=== PATIENT | female | born 1965 | race African-American/Black ===

== ENCOUNTER 2023-01-22 09:11 | Inpatient (IN) | payer MEDICAID ==
[~2023-01-22] VITALS: Ht 160 cm; Wt 41.3 kg
[2023-01-22] MEDS ORDERED: IPRATROPIUM 0.02% 0.5 MG/2.5 ML NEBU INH ONE (09:15)
[2023-01-22] MEDS ORDERED: ALBUTEROL 0.083% 2.5 MG/3 ML NEBU INH ONE (09:15)
[2023-01-22] MEDS ORDERED: predniSONE 20 MG TAB PO ONE (09:15)
[2023-01-22] MEDS ORDERED: ALBUTEROL SULFATE/IPRATROPIU 3 ML SOL IH ONE (09:16)
[2023-01-22 09:17] VITALS: BP 108/78
--- NOTE | 2023-01-22 09:47 | NUR ---
Pt bib bls for decreased o2 sat this morning. Pt is regularly on 02 at 3lpm but still dropped to 70% this morning. Pt was sating 92 on arrival after albuterol tx. Pt off o2 on arrival. MD at bedside. Pt a/o x 4, vss, no ss of acute distress (other then prior o2 level), speech clear, on monitor. IV started. Lab eduardo blood at bedside. RT administered 1 tx.
[2023-01-22 10:02] LABS: BASOPHILS # (AUTO) 0.1 K/uL (0.00-0.22); BASOPHILS % (AUTO) 0.7 % (0.0-2.0); EOSINOPHILS # (AUTO) 0.2 K/uL (0-0.4); EOSINOPHILS % (AUTO) 2.3 % (0.0-4.0); HEMATOCRIT 41.4 % (36-48); HEMOGLOBIN 12.9 g/dL (12.0-16.0); LYMPHOCYTES # (AUTO) 1.4 K/uL (2.5-16.5); LYMPHOCYTES % (AUTO) 18.6 % (20.5-51.1); MEAN CORPUSCULAR HEMOGLOBIN 26 pg (27-31); MEAN CORPUSCULAR HGB CONC 31 g/dL (33-37); MEAN CORPUSCULAR VOLUME 83.7 fL (80-94); MONOCYTES # (AUTO) 0.6 K/uL (0.8-1.0); MONOCYTES % (AUTO) 7.9 % (1.7-9.3); NEUTROPHILS # (AUTO) 5.2 K/uL (1.8-7.7); NEUTROPHILS % (AUTO) 70.5 % (42.2-75.2); PLATELET COUNT (AUTO) 182 K/uL (140-450); RED BLOOD CELL COUNT(AUTO) 4.95 MIL/uL (4.20-5.40); RED CELL DISTRIBUTION WIDTH 19.6 % (11.6-13.7); WHITE BLOOD COUNT (AUTO) 7.4 K/uL (4.8-10.8)
[2023-01-22] MEDS ORDERED: MAG SULF 2000 MG/WATER PREMIX 50 ML IV ONE (10:25)
[2023-01-22 10:31] LABS: ALBUMIN 3.2 g/dL (3.4-5.0); ASPARTATE AMINOTRANSFERASE 164 U/L (15-37); CARBON DIOXIDE 36.3 mmol/L (21-32); CHLORIDE 104 mmol/L (98-107); CREATININE 0.9 mg/dL (0.6-1.3); GFR ARICAN-AMERICAN 83 mL/min (>90); GLUCOSE 102 mg/dL (74-106); POTASSIUM 4.3 mmol/L (3.5-5.1); SODIUM SERUM 143 mmol/L (136-145); TOTAL BILIRUBIN 0.7 mg/dL (0.0-1.0); UREA NITROGEN, BLOOD 23 mg/dL (7-18)
[2023-01-22] MEDS ORDERED: cefTRIAXone 1,000 MG in DEXT 5% MINI-BAG PLUS 50 ML IV ONE (10:35)
[2023-01-22] MEDS ORDERED: AZITHROMYCIN 500 MG in DEXTROSE 5% 250 ML IV ONE (10:40)
[2023-01-22] MEDS: NACL 0.9% 2,000 ML IV SCH ×2 (10:41→17:28)
--- NOTE | 2023-01-22 11:08 | NUR ---
Spoke with lab, who will draw cultures. CT aware of new order. Pt has no complaints at this time. Pt is a/o x 4, vss, no ss of acute distress, breathing equal and unlabored, speech clear. On monitor.
[2023-01-22] MEDS ORDERED: cefTRIAXone 1,000 MG VIAL ONE (11:26)
[2023-01-22] MEDS ORDERED: AZITHROMYCIN 500 MG INJ VIAL IV ONE (11:27)
--- NOTE | 2023-01-22 11:51 | NUR ---
Pt back from ct with contrast infiltration at R arm. has seen and assessed. Pt denies pain. Pt resting in bed without complaints. New IV 18g started in L arm.
--- NOTE | 2023-01-22 13:30 | NUR ---
Pt resting in bed. No complaints at this time. okayed food, pt given meal tray. Vss, no ss of acute distress, breathing equal and unlabored, speech clear.
--- NOTE | 2023-01-22 15:30 | NUR ---
Pt ambulated to and from bathroom without incident. Pt is a/o x 4, vss, no sss of acute distress, placed back on monitor. O2 sat in high 90s. Pt given milk as requested.
[2023-01-22] MEDS ORDERED: guaiFENesin DM 200/20 MG-10 ML 10 ML UDC PO PRN (16:45)
[2023-01-22] MEDS ORDERED: ZOLPIDEM 5 MG TAB PO PRN (16:45)
[2023-01-22] MEDS: NACL 0.9% 1,000 ML IV SCH (16:45)
[2023-01-22] MEDS ORDERED: DOCUSATE SODIUM 100 MG GELCAP PO PRN (16:45)
[2023-01-22] MEDS ORDERED: ACETAMINOPHEN 325 MG TAB PO PRN (16:45)
[2023-01-22] MEDS ORDERED: POTASSIUM CHLORIDE 10 MEQ TABER PO PRN (16:45)
--- NOTE | 2023-01-22 17:00 | NUR ---
Receiving RN just had a code blue. Requested to call back for report.
[2023-01-22 17:30] LABS: PROTHROMBIN TIME 12.2 secs (10.8-13.4)
[2023-01-22 17:44] LABS: CHOL/HDL RATIO 3.9 (1-4.5); FREE T4 (FREE THYROXINE) 1.26 ng/dL (0.76-1.46); MAGNESIUM 1.9 mg/dL (1.8-2.4); PHOSPHORUS 3.9 mg/dL (2.5-4.9); THYROID STIMULATING HORMONE 1.9 uIU/mL (0.34-3.74)
--- NOTE | 2023-01-22 18:45 | NUR ---
Report given to AMRITA Vuong at [facility]. Pt in stable condition. Transported on monitor without incident. Pt a/o x 4, vss, no ss of acute distress, breathing equal and unlabored, speech clear.
--- NOTE | 2023-01-22 18:50 | NUR ---
admitted patient from ED. on O2 @ 2lpm via NC. tolerating well. MRSA swab obtained and sent to lab. educated on fall precaution , verbalized understanding. will endorse to PM shift.
[2023-01-22] MEDS: ALBUTEROL SULFATE/IPRATROPIU 3 ML SOL IH SCH (19:00)
--- NOTE | 2023-01-22 19:07 | NUR ---
RECEIVED PATIENT IN BED ALERT AND ORIENTED WITH BREATHING TREATMENT IN PLACE BY RT. PATIENT REQUESTED MEDICATION AFTER TREATMENT AND NURSING WILL GIVE SANDWICH BASED ON DIET. PATIENT STATED THAT HER IV WAS BOTHERING HER, NURSING EXPRESSED WILL CHANGE SOON POSSIBLE. PATIENT UNDERSTOOD AND AGREED. PATIENT IS ABLE TO VERBALIZE NEEDS. BEDSIDE COMMODE WAS PLACED AT BEDSIDE FOR BATHROOM USAGE WITH ASSISTANCE. SIDE RAILS UP X 2 FOR SAFETY AND ADJUSTMENT. CALL LIGHT WITHIN REACH FOR ALL ASSISTANCE. [email or web address]
[2023-01-22 20:00] VITALS: BP 94/60
--- NOTE | 2023-01-22 20:00 | NUR ---
Patient's Plan of Care was discussed and reviewed with MARC: REBA
[2023-01-22] MEDS: ONDANSETRON 4 MG/2 ML VIAL IM/IVP PRN (23:41)
[2023-01-23] VITALS: BP 121/73
[2023-01-23 00:12] LABS: APPEARANCE,URINE CLEAR (CLEAR); BILIRUBIN,URINE NEGATIVE (NEGATIVE); BLOOD, URINE NEGATIVE (NEGATIVE); COLOR,URINE YELLOW (YELLOW); LEUKOCYTE ESTERASE ,URINE NEGATIVE (NEGATIVE); NITRITE, URINE NEGATIVE (NEGATIVE); UGLUCOSE NEGATIVE (NEGATIVE)
[2023-01-23 00:27] LABS: BARBITURATE, URINE NEGATIVE ng/ml (NEG <=200); BENZODIAZEPINE, URINE NEGATIVE ng/mL (NEG <=200); CANNABINOID, URINE NEGATIVE ng/mL (NEG <=50); COCAINE, URINE NEGATIVE ng/mL (NEG <=300); OPIATE, URINE NEGATIVE ng/mL (NEG <=2000); PHENCYCLIDINE SCREEN,URINE NEGATIVE ng/mL (NEG <=25)
--- NOTE | 2023-01-23 00:30 | NUR ---
PATIENT WAS GIVEN ZOFRAN AND NO NOTED SIDE EFFECTS. PATIENT WAS ABLE TO SLEEP WITHOUT VOMITING. NEW IV LINE STARTED ON LEFT LATERAL FOREARM KEPT CLEAN AND DRY. ALL NEEDS WERE MET AT THIS TIME. CALL LIGHT WITHIN REACH. PATIENT IS AWARE SPUTUM IS NEEDED FOR THE LAB. URINE WAS COLLECTED AND SENT TO LAB. [email or web address]
[2023-01-23] MEDS: HYDROcodone/APAP 7.5/325 MG 1 TAB PO PRN ×2 (02:33→11:12)
--- NOTE | 2023-01-23 03:14 | NUR ---
PATIENT IN BED ASLEEP. NO NOTED INCIDENT AT THIS TIME. [email or web address]
[2023-01-23 04:00] VITALS: BP 120/42
[2023-01-23] MEDS: ONDANSETRON 4 MG/2 ML VIAL IM/IVP PRN (04:20)
--- NOTE | 2023-01-23 05:27 | NUR ---
PATIENT IN BED ASLEEP. REMAINS CLEAN AND DRY. NO S/S OF PAIN/DISCOMFORT. NO NOTED RESPIRATORY DISTRESS AT THIS TIME. NO NOTED INCIDENT AT THIS TIME. CALL LIGHT WITHIN REACH. SIDE RAILS UP X 2. [email or web address]
[2023-01-23 06:53] LABS: BASOPHILS % (AUTO) 0.1 % (0.0-2.0); EOSINOPHILS % (AUTO) 0.1 % (0.0-4.0); HEMATOCRIT 38.3 % (36-48); HEMOGLOBIN 11.7 g/dL (12.0-16.0); LYMPHOCYTES # (AUTO) 1.3 K/uL (2.5-16.5); LYMPHOCYTES % (AUTO) 17.5 % (20.5-51.1); MEAN CORPUSCULAR HEMOGLOBIN 26 pg (27-31); MEAN CORPUSCULAR HGB CONC 31 g/dL (33-37); MEAN CORPUSCULAR VOLUME 84.9 fL (80-94); MONOCYTES # (AUTO) 0.6 K/uL (0.8-1.0); MONOCYTES % (AUTO) 7.5 % (1.7-9.3); NEUTROPHILS # (AUTO) 5.7 K/uL (1.8-7.7); NEUTROPHILS % (AUTO) 74.8 % (42.2-75.2); PLATELET COUNT (AUTO) 169 K/uL (140-450); RED BLOOD CELL COUNT(AUTO) 4.51 MIL/uL (4.20-5.40); RED CELL DISTRIBUTION WIDTH 19.1 % (11.6-13.7); WHITE BLOOD COUNT (AUTO) 7.6 K/uL (4.8-10.8)
[2023-01-23 07:08] LABS: T4 (THYROXINE) 6.1 ug/dL (4.5-12.0)
--- NOTE | 2023-01-23 07:30 | NUR ---
ENDORSED TO ADZE RN THAT PATIENT WAS STABLE, CONTINUE WITH CARE. [email or web address]
[2023-01-23] MEDS: ALBUTEROL SULFATE/IPRATROPIU 3 ML SOL IH SCH ×3 (07:35→19:27)
[2023-01-23 08:00] VITALS: BP 102/68
--- NOTE | 2023-01-23 08:00 | NUR ---
RECEIVED PATIENT RESTING COMFORTABLY IN BED, NOT IN ANY FORM OF DISTRESS, ON O2 @ 3LPM VIA NC TOLERATING WELL, SHIFT ASSESSMENT DONE AND DOCUMENTED, PLAN OF CARE DISCUSSED, EDUCATED ON FALL PRECAUTION VERBALIZED UNDERSTANDING, WILL CONTINUE TO MONITOR.
[2023-01-23] MEDS: PANTOPRAZOLE 40 MG TABEC PO SCH (08:12)
[2023-01-23] MEDS: AZITHROMYCIN 250 MG TAB PO SCH (08:13)
[2023-01-23] MEDS: predniSONE 20 MG TAB PO SCH (08:13)
--- NOTE | 2023-01-23 08:48 | NUR ---
PATIENT HAS BEEN SCREENED AND CATEGORIZED HIGH NUTRITION RISK. PATIENT WILL BE SEEN WITHIN 1-2 DAYS OF ADMISSION. 01/23/23-01/24/[address]
[2023-01-23 09:12] LABS: ANION GAP 9.9 (8-16); CARBON DIOXIDE 30.9 mmol/L (21-32); CREATININE 0.6 mg/dL (0.6-1.3); POTASSIUM 4.8 mmol/L (3.5-5.1)
--- NOTE | 2023-01-23 09:13 | NUR ---
DC [age] YRS OLD FEMALE PATIENT WAS ADMITTED FROM HOME WITH A DX OF HYPOXIA, PNA, COPD EXACERBATION. PATIENT HAS A HX OF HTN AND COPD. CXR SHOWED RT BASILAR INFILTRATES/ATELECTASIS. CT CHEST NO PE. RAPID COVID TEST NEGATIVE. ON O2 3L/NC SATING 98%. ADMINISTERED IV ABX ROCEPHIN AND CONTINUED HOME MEDS. CONSULTED WITH PULMO. DC PLAN TO GO HOME WHEN STABLE. CM TO FOLLOW
[2023-01-23] MEDS: NACL 0.9% 1,000 ML IV SCH (09:25)
[2023-01-23 12:00] VITALS: BP 104/67
[2023-01-23] MEDS ORDERED: PANTOPRAZOLE 40 MG TABEC PO STA (12:59)
[2023-01-23] MEDS ORDERED: CALCIUM CARBONATE 500 MG TAB.CHEW PO PRN (13:00)
[2023-01-23] MEDS: LACTATED RINGERS 1,000 ML IV SCH ×2 (13:10→23:10)
[2023-01-23] MEDS ORDERED: HYDROmorphone 1 MG/ML AMP IVP PRN ×2 (13:10)
--- NOTE | 2023-01-23 14:28 | NUR ---
patient transported to CT scan
--- NOTE | 2023-01-23 14:29 | NUR ---
01/23/23 RD INITIAL ASSESSMENT COMPLETED PLEASE REFER TO NUTRITION ASSESSMENT UNDER CARE ACTIVITY FOR ESTIMATED NUTRITIONAL NEEDS. 1. CONTINUE NPO DIET TOLERATED AND ONCE MEDICALLY APPROPRIATE ADVANCE TO CARDIAC DIET. 2. RD RECOMMENDS ENSURE TIP TO HELP WITH CALORIE AND PROTEIN INTAKE DUE TO LOW WEIGHT AND BMI ONCE MEDICALLY APPROPRIATE. 3. RD TO FOLLOW-UP 3-5 DAYS, MODERATE RISK JAVAD QUINTANILLA, RD
[2023-01-23 14:32] LABS: CHOL/HDL RATIO 3.4 (1-4.5)
[2023-01-23 16:00] VITALS: BP 102/68
--- NOTE | 2023-01-23 19:00 | NUR ---
lab called sputum specimen needs to be at least 1ml. patient unable to produce sputum at this time.
--- NOTE | 2023-01-23 19:20 | NUR ---
RECEIVED PATIENT FROM AM NURSE FOR CONTINUITY OF CARE. PT IS STABLE
[2023-01-23] MEDS: BUDESONIDE 0.25 MG/2 ML NEBU INH SCH (19:27)
[2023-01-23 20:00] VITALS: BP 105/61
--- NOTE | 2023-01-23 23:00 | NUR ---
DR WESTBROOK CALLED ASKING FOR LAB RESULTS,US ABDOMEN,CT OF ABDOMEN/PELVIS. ALL INFORMATION PROVIDED TO MD. NO ORDERS GIVEN
[2023-01-24] VITALS: BP 101/58
[2023-01-24] MEDS: ALBUTEROL SULFATE/IPRATROPIU 3 ML SOL IH PRN ×3 (02:23→17:18)
[2023-01-24 04:00] VITALS: BP 108/55
[2023-01-24] MEDS: ALBUTEROL SULFATE/IPRATROPIU 3 ML SOL IH SCH ×3 (07:00→19:33)
--- NOTE | 2023-01-24 07:07 | NUR ---
RECEIVED PT ON 3L NASAL CANNULA. WILL RETURN SHORTLY FOR BREATHING TREATMENT, PT SLEEPING. EQUAL CHEST RISE, NO DISTRESS NOTED. WILL CONTINUE TO MONITOR.
--- NOTE | 2023-01-24 07:10 | NUR ---
RECEIVED REPORT FROM COREMAKING MACHINE OPERATOR NURSE FOR CONTINUITY OF CARE. PT STABLE AT THIS TIME.
[2023-01-24] MEDS: BUDESONIDE 0.25 MG/2 ML NEBU INH SCH ×2 (07:12→19:33)
[2023-01-24 07:16] LABS: BASOPHILS % (AUTO) 0.2 % (0.0-2.0); EOSINOPHILS % (AUTO) 0.2 % (0.0-4.0); HEMATOCRIT 36.8 % (36-48); HEMOGLOBIN 11.3 g/dL (12.0-16.0); LYMPHOCYTES # (AUTO) 1.3 K/uL (2.5-16.5); LYMPHOCYTES % (AUTO) 15.3 % (20.5-51.1); MEAN CORPUSCULAR HEMOGLOBIN 26 pg (27-31); MEAN CORPUSCULAR HGB CONC 31 g/dL (33-37); MEAN CORPUSCULAR VOLUME 84.7 fL (80-94); MONOCYTES # (AUTO) 0.6 K/uL (0.8-1.0); MONOCYTES % (AUTO) 7.3 % (1.7-9.3); NEUTROPHILS # (AUTO) 6.7 K/uL (1.8-7.7); PLATELET COUNT (AUTO) 161 K/uL (140-450); RED BLOOD CELL COUNT(AUTO) 4.34 MIL/uL (4.20-5.40); RED CELL DISTRIBUTION WIDTH 18.7 % (11.6-13.7); WHITE BLOOD COUNT (AUTO) 8.7 K/uL (4.8-10.8)
--- NOTE | 2023-01-24 07:20 | NUR ---
ENDORSED PATIENT TO AM NURSE IN STABLE CONDITION FOR CONTINUITY OF CARE
[2023-01-24 07:22] LABS: ANION GAP 7.5 (8-16); CARBON DIOXIDE 35.1 mmol/L (21-32); CREATININE 0.6 mg/dL (0.6-1.3); POTASSIUM 4.6 mmol/L (3.5-5.1)
[2023-01-24 08:00] VITALS: BP 102/58
[2023-01-24 08:08] LABS: HEPATITIS A ANTIBODY IGM Negative (Negative); HEPATITIS B CORE AB TOTAL Negative (Negative); HEPATITIS B SURFACE ANTIBODY Non Reactive (.); HEPATITIS B SURFACE ANTIGEN Negative (Negative)
[2023-01-24] MEDS: LACTATED RINGERS 1,000 ML IV SCH ×2 (09:10→20:05)
--- NOTE | 2023-01-24 09:15 | NUR ---
PLACED PT ON 4L BUBBLE HUMIDIFIER DUE TO LOW SATURATION, 88% AND PT COMFORT. NO DISTRESS. WILL CONTINUE TO MONITOR.
[2023-01-24] MEDS: predniSONE 20 MG TAB PO SCH (09:48)
[2023-01-24] MEDS: PANTOPRAZOLE 40 MG TABEC PO SCH (09:48)
[2023-01-24] MEDS: AZITHROMYCIN 250 MG TAB PO SCH (09:48)
[2023-01-24 16:00] VITALS: BP 91/60
--- NOTE | 2023-01-24 17:25 | NUR ---
@1715 RN CALLED FOR PT FEELING SOB. ARRIVED AT BEDSIDE PT SATURATION WAS AT 89% ON 3L BUBBLE NC. PRN TREATMENT WAS GIVEN TO PT. PT STATES THAT SHE IS FEELING BETTER. AT THIS TIME VITAL SIGNS ARE 65HR RR20 SATURATION 99% ON 3L BUBBLE NC. NO DISTRESS NOTED. WILL CONTINUE TO MONITOR
--- NOTE | 2023-01-24 19:20 | NUR ---
ENDORSED PT TO ROVING FRAME TENDER NURSE FOR CONTINUITY OF CARE. PT STABLE AT THIS TIME.
--- NOTE | 2023-01-24 19:21 | NUR ---
RECEIVED PT FROM MORNING SHIFT NURSE. PT IS AOX4, AMBULATORY, ABLE TO VERBALIZE NEEDS AND ABLE TO FOLLOW COMMANDS. PT IS ON 3L NC AND ON CARDIAC DIET. PT HAS IV ON LEFT FOREARM AC GAUGE 22 RUNNING WITH LR AT 100ML/HR. PT HAS BEDSIDE COMMODE AND PT SKIN IS INTACT. NO COMPLAIN OF PAIN AT THIS TIME. NO S/S OF RESPIRATORY DISTRESS NOTED. ALL SAFETY MEASURES IMPLEMENTED. BED IN LOW POSITION, BED WHEELS ON LOCK AND CALL LIGHT WITHIN REACH.
--- NOTE | 2023-01-24 22:00 | NUR ---
PT WAS GIVEN 2 JELLO PER PT REQUEST. NO COMPLAIN OF PAIN. NO S/S OF RESPIRATORY DISTRESS NOTED. ALL SAFETY MEASURES IMPLEMENTED. BED IN LOW POSITION. BED WHEELS ON LOCK AND CALL LIGHT WITHIN REACH
--- NOTE | 2023-01-25 | NUR ---
PT IS ON SLEEP. CHEST RISE AND FALL SYMMETRICALLY NOTED. RESPIRATION IS EVEN AND UNLABORED. ALL SAFETY MEASURES IMPLEMENTED. BED IN LOW POSITION. BED WHEELS ON LOCK AND CALL LIGHT WITHIN REACH
--- NOTE | 2023-01-25 02:00 | NUR ---
CHECKED THE PT, STILL ON SLEEP. CHEST RISE AND FALL SYMMETRICALLY NOTED. RESPIRATION IS EVEN AND UNLABORED. ALL SAFETY MEASURES IMPLEMENTED. BED IN LOW POSITION. BED WHEELS ON LOCK AND CALL LIGHT WITHIN REACH
[2023-01-25 04:00] VITALS: BP 93/50
--- NOTE | 2023-01-25 04:00 | NUR ---
HELPED PT TO DO HER MORNING CARE. NO COMPLAIN OF PAIN AT THIS TIME. PT IS ON SLEEP. NO S/S OF RESPIRATORY DISTRESS NOTED. ALL SAFETY MEASURES IMPLEMENTED. BED IN LOW POSITION. BED WHEELS ON LOCK AND CALL LIGHT WITHIN REACH
[2023-01-25] MEDS: LACTATED RINGERS 1,000 ML IV SCH ×2 (05:33→15:18)
[2023-01-25 07:00] LABS: BASOPHILS % (AUTO) 0.3 % (0.0-2.0); EOSINOPHILS % (AUTO) 0.1 % (0.0-4.0); HEMATOCRIT 37.4 % (36-48); HEMOGLOBIN 11.7 g/dL (12.0-16.0); LYMPHOCYTES # (AUTO) 1.2 K/uL (2.5-16.5); MEAN CORPUSCULAR HEMOGLOBIN 26 pg (27-31); MEAN CORPUSCULAR HGB CONC 31 g/dL (33-37); MEAN CORPUSCULAR VOLUME 83.2 fL (80-94); MONOCYTES # (AUTO) 0.5 K/uL (0.8-1.0); MONOCYTES % (AUTO) 5.3 % (1.7-9.3); NEUTROPHILS # (AUTO) 7.3 K/uL (1.8-7.7); NEUTROPHILS % (AUTO) 81.3 % (42.2-75.2); PLATELET COUNT (AUTO) 190 K/uL (140-450); RED CELL DISTRIBUTION WIDTH 18.7 % (11.6-13.7); WHITE BLOOD COUNT (AUTO) 8.9 K/uL (4.8-10.8)
[2023-01-25 07:18] LABS: CARBON DIOXIDE 37.7 mmol/L (21-32); CREATININE 0.5 mg/dL (0.6-1.3); POTASSIUM 4.7 mmol/L (3.5-5.1)
--- NOTE | 2023-01-25 07:20 | NUR ---
PT IS STABLE. ENDORSED PT TO MORNING SHIFT NURSE FOR CONTINUITY OF CARE.
[2023-01-25] MEDS: ALBUTEROL SULFATE/IPRATROPIU 3 ML SOL IH SCH ×3 (07:27→19:08)
[2023-01-25] MEDS: BUDESONIDE 0.25 MG/2 ML NEBU INH SCH ×2 (07:27→19:08)
--- NOTE | 2023-01-25 07:27 | NUR ---
RECEIVED ON SUPPLEMENTAL OXYGEN AT 3 LPM VIA NC; REVIEWED WITH PATIENT PMHX:COPD, ALVEOLAR AIR EXCHANGE PROCESS, CURRENT OXYGEN USAGE AT 3 LPM, HOME OXYGEN USE AT 2 LPM; NASAL DRYNESS FROM SUPPLEMENTAL OXYGEN; CONCURRENCE WITH PATIENT TO DECREASE SUPPLEMENTAL USAGE TO 2 LPM; ADDED HUMIDIFIER; GENA/ROXANA RN NOTIFIED OF OXYGEN TITRATION
[2023-01-25 08:00] VITALS: BP 102/61
[2023-01-25] MEDS: PANTOPRAZOLE 40 MG TABEC PO SCH (09:13)
[2023-01-25] MEDS: AZITHROMYCIN 250 MG TAB PO SCH (09:14)
[2023-01-25] MEDS: predniSONE 20 MG TAB PO SCH (09:14)
[2023-01-25] MEDS: ALBUTEROL SULFATE/IPRATROPIU 3 ML SOL IH PRN ×2 (12:45→16:21)
--- NOTE | 2023-01-25 12:46 | NUR ---
PATIENT STATES THAT WHEN WAKING UP FROM SLEEP STATUS "I'M ALWAYS SHORT OF BREATH"
--- NOTE | 2023-01-25 13:43 | NUR ---
PATIENT ASLEEP AT THIS TIME; NO DISTRESS NOTED; DIELECTRIC TESTER TO INITIATE INCENTIVE SPIROMETRY THERAPY AT A LATER TIME; INCENTIVE SPIROMETRY AT BEDSIDE
[2023-01-25 16:00] VITALS: BP 99/50
--- NOTE | 2023-01-25 16:20 | NUR ---
PATIENT STATES SOB WHEN AWOKE FROM NAP; HHN PRN THERAPY GIVEN AT THIS TIME
--- NOTE | 2023-01-25 16:30 | NUR ---
TOLERATED INCENTIVE SPIROMETRY THERAPY WELL WITHOUT ADVERSE REACTIONS NOTED; ENCOURAGED TO USE INCENTIVE SPIROMTERY Addendum: 01/25/23 at 1638 by [address] RT ENCOURAGED PATIENT TO USE INCENTIVE SPIROMETRY EVERY 1-12 HOURS WHILE AWAKE
--- NOTE | 2023-01-25 19:36 | NUR ---
ENDORSE PATIENT IN STABLE CONDITION TO PM SHIFT NURSE WHILE LR INFUSING AT 100ML/HR VIA L. FOREARM. PATIENT HAS BM AND STILL ON 3 LITER OXYGEN.
--- NOTE | 2023-01-25 20:30 | NUR ---
PER PT SO HOT IN THE ROOM , WILL PROVIDE EXTRA ELECTRIC FAN , O 2 SAT 95 % ON O2 AT 2LPM /NC , WILL CONT. TO MONITOR
--- NOTE | 2023-01-25 22:00 | NUR ---
HIT THE CALL LIGHT REQUESTING ICE CREAM , WILL PROVIDE ICE CREAM , NO COMPLAIN MADE .
--- NOTE | 2023-01-26 | NUR ---
ROUNDS , NO S/SX OF ACUTE DISTRESS NOTES , O2 SAT WNL , WILL CONT. TO MONITOR .
[2023-01-26 04:00] VITALS: BP 112/60
[2023-01-26] MEDS: LACTATED RINGERS 1,000 ML IV SCH ×2 (05:10→11:10)
--- NOTE | 2023-01-26 05:10 | NUR ---
JUST VOIDED , PER PT SHE HAS SOB , O2 SAT 91 % - REQUESTING FOR BREATHING TREATMENT , ENCOURAGE PT TO REST FOR AWHILE AND DO PURSE LIP BREATHING , IF THE SOD PERSISTENT - WILL REFER TO RT . PT HAS COPD , ON 2LPM/NC , WILL CONT. TO MONITOR , CALL LIGHT WITHIN REACH .
--- NOTE | 2023-01-26 05:49 | NUR ---
RESTING ON BED , NO S/SX OF ACUTE DISTRESS NOTED AT THIS TIME , NO C/O SOB AT THIS TIME .
[2023-01-26 06:04] LABS: ANION GAP 4.1 (8-16); CARBON DIOXIDE 39.2 mmol/L (21-32); CREATININE 0.5 mg/dL (0.6-1.3); POTASSIUM 4.3 mmol/L (3.5-5.1)
[2023-01-26 06:07] LABS: BASOPHILS % (AUTO) 0.4 % (0.0-2.0); EOSINOPHILS % (AUTO) 0.4 % (0.0-4.0); HEMATOCRIT 39.3 % (36-48); HEMOGLOBIN 12.1 g/dL (12.0-16.0); LYMPHOCYTES # (AUTO) 1.5 K/uL (2.5-16.5); LYMPHOCYTES % (AUTO) 16.1 % (20.5-51.1); MEAN CORPUSCULAR HEMOGLOBIN 26 pg (27-31); MEAN CORPUSCULAR HGB CONC 31 g/dL (33-37); MEAN CORPUSCULAR VOLUME 83.8 fL (80-94); MONOCYTES # (AUTO) 0.6 K/uL (0.8-1.0); MONOCYTES % (AUTO) 6.4 % (1.7-9.3); NEUTROPHILS # (AUTO) 7.1 K/uL (1.8-7.7); NEUTROPHILS % (AUTO) 76.7 % (42.2-75.2); PLATELET COUNT (AUTO) 200 K/uL (140-450); RED BLOOD CELL COUNT(AUTO) 4.69 MIL/uL (4.20-5.40); RED CELL DISTRIBUTION WIDTH 18.9 % (11.6-13.7); WHITE BLOOD COUNT (AUTO) 9.3 K/uL (4.8-10.8)
--- NOTE | 2023-01-26 07:30 | NUR ---
ENDORSED PT FOR CONT. OF CARE .
[2023-01-26 08:00] VITALS: BP 125/73
[2023-01-26] MEDS: AZITHROMYCIN 250 MG TAB PO SCH (08:37)
[2023-01-26] MEDS: PANTOPRAZOLE 40 MG TABEC PO SCH (08:37)
[2023-01-26] MEDS: predniSONE 20 MG TAB PO SCH (08:38)
[2023-01-26] MEDS ORDERED: PRED20TA5 PO (11:14)
[2023-01-26] MEDS ORDERED: AMOX-999 PO (11:14)
[2023-01-26] MEDS ORDERED: PANT40EC56 PO (11:14)
[2023-01-26] MEDS ORDERED: ALBU117P INH (11:16)
[2023-01-26] MEDS ORDERED: BUDE1AER IH (11:17)
--- NOTE | 2023-01-26 14:45 | NUR ---
01/26/23 RD FOLLOW UP COMPLETED PLEASE REFER TO NUTRITION ASSESSMENT UNDER CARE ACTIVITY FOR ESTIMATED NUTRITIONAL NEEDS. 1. RD RECOMMENDS TO CONTINUE CARDIAC DIET TOLERATED. 2. RD RECOMMENDS ENSURE TID TO HELP WITH WEIGHT AND PO INTAKE. THIS WILL PROVIDE 1,050 CALORIES AND 60 GRAMS OF PROTEIN. 3. RD TO FOLLOW-UP 3-5 DAYS, MODERATE RISK JAVAD QUINTANILLA, RD
[2023-01-26 14:59] VITALS: BP 125/73
[2023-01-26] MEDS: BUDESONIDE 0.25 MG/2 ML NEBU INH SCH (15:05)
[2023-01-26] MEDS: ALBUTEROL SULFATE/IPRATROPIU 3 ML SOL IH SCH ×2 (15:05→15:07)
--- NOTE | 2023-01-26 16:10 | NUR ---
DISCHARGE PATIENT IN STABLE CONDITION HOME PER PCP ORDER, DISCHARGE INSTRUCTION GIVE, DISCHARGE CONSENT SIGN, IV ACCESS & WRIST BAND REMOVED PRIOR WHEEL PATIENT OUT THE FACILITY. UBER ARRANGED PER PATIENT REQUEST AND PROMISE THAT SHE IS FINE WITHOUT OXYGEN AND RIDE UBER HOME IN [place].
== END 2023-01-26 16:35 | disposition home or self-care (01) | DRG 139 ==
LOC: MED 09:11 → MTU 15:03
PROVIDERS: ADMIT Family Medicine; ATTEND Family Medicine
DX: J18.9 Pneumonia, unspecified organism (principal); J96.21 Acute and chronic respiratory failure with hypoxia; K85.90 Acute pancreatitis without necrosis or infection, unspecified; I27.20 Pulmonary hypertension, unspecified; R74.01 Elevation of levels of liver transaminase levels; J96.22 Acute and chronic respiratory failure with hypercapnia; Z20.822 Contact with and (suspected) exposure to COVID-19; J44.0 Chronic obstructive pulmonary disease with (acute) lower respiratory infection; J44.1 Chronic obstructive pulmonary disease with (acute) exacerbation
CPT/HCPCS: 36415; 71045; 71275; 76705; 80048; 80053; 80305; 81003; 82150; 83036; 83605; 83690; 83735; 83880; 84100; 84436; 84439; 84443; 84479; 84484; 85025; 85379; 85610; 85730; 86704; 86706; 86708; 86709; 86803; 87040; 87081; 87340; 93005; 94010; 94640; 96374; 96375; 99291; 99292; J0456; J0696; J1170; J2405; J3475; J7060; J7512; J7626; Q0092; Q9967